=== PATIENT | male | born 1960 | race Caucasian/White ===

== ENCOUNTER → 2017-05-30 | Outpatient (REF) | payer BC ==
[2017-05-30 14:36] LABS: TOTAL PROTEIN 7.2 GM/DL (6.4-8.2)
[2017-05-30 15:01] LABS: VITAMIN B12 LEVEL 846 PG/ML
[2017-05-30 15:47] LABS: ESTIMATED AVERAGE GLUCOSE 117 MG/DL (60-110); HEMOGLOBIN A1c 5.7 %
[2017-05-31 13:10] LABS: ALBUMIN % 59.7 % (55.8-66.1); ALPHA-1-GLOBULIN % 5.2 % (2.9-4.9); ALPHA-1-GLOBULINS 0.37 GM/DL (0.17-0.41); ALPHA-2-GLOBULINS 0.66 GM/DL (0.42-0.99); ALPHA-2-GLOBULINS % 9.2 % (7.1-11.8); BETA-1-GLOBULINS % 6.9 % (4.7-7.2); BETA-2-GLOBULINS 0.51 GM/DL (0.19-0.55); BETA-2-GLOBULINS % 7.1 % (3.2-6.5); GAMMA GLOBULIN % 11.9 % (11.1-18.8); GAMMA GLOBULINS 0.86 GM/DL (0.65-1.58)
[2017-06-02 00:06] LABS: VITAMIN E LEVEL 6.3 mg/L (5.3-17.5)
== END ==
LOC: M LABNEURO 09:12
DX: G62.9 Polyneuropathy, unspecified (principal); E11.9 Type 2 diabetes mellitus without complications
CPT/HCPCS: 82525

== ENCOUNTER → 2017-07-18 | Outpatient (REF) | LOC: M SMT 10:19 | DX: Z02.71 Encounter for disability determination (principal); M19.042 Primary osteoarthritis, left hand; M19.011 Primary osteoarthritis, right shoulder ==